=== PATIENT | female | born 1995 | race Caucasian/White ===

== ENCOUNTER → 2016-12-29 | Outpatient (CLI) | payer BC ==
--- NOTE | 2016-12-29 13:12 | RAD ---
EXAM: Abdomen sonogram. HISTORY: Pain. TECHNIQUE: Sonographic imaging of the abdomen was performed. COMPARISON: None. FINDINGS: The liver is normal in size. No focal hepatic lesion is seen. The gallbladder is unremarkable. The common bile duct is normal in caliber. The kidneys are normal in size. There is no hydronephrosis or solid or cystic renal lesion. The pancreas, spleen, aorta and inferior cava are unremarkable. IMPRESSION: Unremarkable abdomen sonogram.
--- NOTE | 2016-12-29 13:13 | RAD ---
EXAM: Pelvic sonogram. HISTORY: Pain. TECHNIQUE: Transabdominal and transvaginal sonographic imaging of the pelvis was performed. COMPARISON: None. FINDINGS: The uterus measures 6.1 x 3.2 x 4.3 cm. The endometrial stripe measures 2.8 mm in thickness. The right ovary measures 3.5 x 2.1 x 3.0 cm and demonstrates normal blood flow. The left ovary is not seen. There is no pelvic free fluid. IMPRESSION: 1. Nonvisualization of the left ovary. 2. Otherwise, unremarkable pelvic sonogram.
== END | disposition home or self-care (01) ==
LOC: US 11:10
PROVIDERS: ATTEND Family Medicine
DX: R10.2 Pelvic and perineal pain (principal)
CPT/HCPCS: 76700; 76830; 76856